=== PATIENT | male | born 2005 | race Caucasian/White ===

== ENCOUNTER 2025-06-01 12:35 | Emergency (ER) | payer OTHER, SELFPAY ==
--- NOTE | 2025-06-01 12:37 | CT_ITS ---
WS: [id number] CT HEAD NONCONTRAST HISTORY: fall, head injury TECHNIQUE: Contiguous axial imaging performed through the brain. Bone and soft tissue windows. Sagittal and coronal reformats reviewed. All CT scans at [facility] use at least one of these dose optimization techniques: automated exposure control; mA and/or kV adjustment per patient size (includes targeted exams where dose is matched to clinical indication); or iterative reconstruction. DLP: 1243.68 mGy.cm COMPARISON: None available. No acute intracranial hemorrhage, midline shift or mass effect. No atrophy or prior infarcts or herniation. Ventricles: Normal size with no hydrocephalus. Paranasal sinuses: As visualized are clear. Mastoid air cells: Well pneumatized. Calvarium and scalp: Skull is intact with no soft tissue edema or swelling. CT/CT head wo con* [id number] IMPRESSION: Negative head CT.
--- OUTSIDE RECORDS SUMMARY | 2025-06-01 12:45 | XMS_ITS | Continuity of Care Document ---
Author Organization [place] [facility] Liam, Dewayne, [facility] ([facility]) Address [address] [place] [address] Assessment No assessment recorded. Plan of Treatment Reminders Order Date Submit Date Provider Last Modified By Organization Details Last Modified Time Details Appointments ACUTE VISIT 025 11:50AM WALK-IN Not available Not available Not available Lab None recorde d. Referral None recorde d. Procedures None recorde d. Surgeries None recorde d. Imaging None recorde d. Medication Orders None recorde d. Patient TargetsNo targets recorded. Patient Instructions Encounter Date Encounter Id Patient Instructions Last Modified By Organization Details Last Modified Time 06/01/2025 [id number] ER- with nystagmus, smile being off mildly, dizziness and headache- I recommend ER for further eval [email or web address] Not available 06/01/2025 13:41:50 Reason for Referral None Reported. Problems Name Problem SNOMED Code Status Onset Date Resolution Date Notes Provider Name and Address Organization Details Recorded Time Standard circumcision Active 2006 Circ; 007 2:24PM by Kavya Lopez RN, Office Visit; Promote d; acuity set as *; [facility] Available [facility] 03:15:58 Problem Notes None recorded. Medical Equipment None Reported. Allergies No known drug allergies Medications Name Sig Start Date Stop Date Status Note LastModified by Organization Details LastModified Time Poly-V i-Ophelia QD 006 2024 completed Recorded 11/25/2006 2:24PM by Kavya Lopez RN, Office Visit; Refill Quantity: 100; Tablet Chewable; Not Available Not Available Not Available Vitals Date Recorded Body weight Body mass index (BMI) Body mass index (BMI) [Percentile] Per age and sex Body height Oxygen saturation Oxygen saturation in Arterial blood by Pulse oximetry Heart rate Respiratory rate Body temperature Systolic And Diastolic Provider Name and Address Organization Details Last Updated DateTime 120717. 61 g 31.5 kg/m2 96 % 183.52 cm 98 % 98 % 90 /min 16 /min 98.2 [degF] 140/90 mm[Hg] Shelley Dorman [facility] 13:04:02 Social History Question Answer Notes LastModified by Organizat ion Details LastModified Time Tobacco Smoking Status Former Smoker Shelley Dorman nazario [facility] 06/01/2025 13:01:35 What Was The Date Of Your Most Recent Tobacco Screening? 06/01/2025 [email or web address] Information not available 06/01/2025 Sex: Unknown Functional Status None recorded. Mental Status None recorded. Family History Nothing Reported Notes:Diabetes Medical History No medical history recorded. Immunizations Vaccine Type Date Status Note Provider Nam e and Address Organization Details Recorded Time varicella 6 completed Not Available [facility] 03/30/2023 02:43:29 Hib (HbOC) 6 completed Not Available [facility] 03/30/2023 02:43:30 MMR 6 completed Not Available [facility] 03/30/2023 02:43:31 DTaP, unspecified formulation 6 completed Not Available [facility] 03/30/2023 02:43:32 Hep B, adolescent or pediatric 5 completed Not Available [facility] 06/01/2025 12:57:06 DTaP, 5 pertussis antigens 5 completed Not Available [facility] 06/01/2025 12:57:06 Hib (PRP-T) 5 completed [facility] 06/01/2025 12:57:06 Pneumococcal conjugate PCV 13 5 completed Not Available [facility] 06/01/2025 12:57:06 IPV 5 completed Not Available [facility] 06/01/2025 12:57:06 Hep B, adolescent or pediatric 5 completed Not Available [facility] 06/01/2025 12:57:06 Hib (PRP-T) 5 completed Not Available [facility] 06/01/2025 12:57:06 DTaP, 5 pertussis antigens 5 completed Not Available [facility] 06/01/2025 12:57:06 Pneumococcal conjugate PCV 13 5 completed Not Available [facility] 06/01/2025 12:57:06 IPV 5 completed Not Available [facility] 06/01/2025 12:57:06 DTaP, 5 pertussis antigens 5 completed Not Available [facility] 06/01/2025 12:57:06 Hib (PRP-T) 5 completed Not Available [facility] 06/01/2025 12:57:06 Pneumococcal conjugate PCV 13 5 completed Not Available [facility] 06/01/2025 12:57:06 IPV 5 completed Not Available [facility] 06/01/2025 12:57:06 MMR 9 completed Not Available [facility] 06/01/2025 12:57:06 varicella 9 completed Not Available [facility] 06/01/2025 12:57:06 Hep B, adolescent or pediatric 9 completed Not Available [facility] 06/01/2025 12:57:06 Pneumococcal conjugate PCV 13 9 completed Not Available [facility] 06/01/2025 12:57:06 IPV 9 completed Not Available [facility] 06/01/2025 12:57:06 DTaP, 5 pertussis antigens 9 completed Not Available [facility] 06/01/2025 12:57:06 Tdap 8 completed Not Available [facility] 06/01/2025 12:57:06 meningococcal MCV4P 8 completed Not Available [facility] 06/01/2025 12:57:06 HPV, quadrivalent 8 completed Not Available [facility] 06/01/2025 12:57:06 meningococcal MCV4P 2 completed Not Available [facility] 06/01/2025 12:57:06 Past Encounters Encounter ID Performer Location Encounter Start Date Encounter Closed Date Diagnosis/Indication Diagnosis SNOMED-CT Code Diagnosis ICD10 Code Diagnosis IMO Codes Diagnosis Note [id number] TRACY ARENAS APRN [facility] ([facility]) [address] [place] [address] 06/01/2025 12:53:35 06/01/2025 13:42:03 Dizziness [id number] R42 21076 Health Concerns Section Related Observation LastModified by Organization Detai ls LastModified Time None Recorded Concern Status LastModified by Organization Details LastModified Time None Recorded Payers None recorded. Notes Date Note Type Note Provider Name and Address Organization Details Recorded Time 06/01/2025 text/html HeadacheReported by Patient walk in patientpatient is here today for walking yesterday and then he just fell to the ground and had no idea how he got there. Patient said after that he has felt light headed and dizzy TRACY ARENAS APRN [address] [place], [address], [facility] 06/01/2025 13:42:02
--- OUTSIDE RECORDS SUMMARY | 2025-06-01 12:45 | XMS_ITS | Data Portability ---
Author Organization [place] - Rodney Ordaz [facility] Dewayne Wheeler [facility] Address [address] [address] Assessment No assessment recorded. Plan of Treatment [...] By Organization Details Last Modified Time 06/01/2025 [id number] ER- with nystagmus, smile being off mildly, [...] d; acuity set as *; Not Available [facility] 03:[facility]58 Problem Notes None recorded. Medical Equipment [...] and Address Organization Details Last Updated DateTime 022227. 61 g 31.5 kg/m2 96 % 183.52 cm 98 % 98 % 90 /min 16 /min 98.2 [degF] 140/90 mm[Hg] Shelley Dorman [facility] 13:04:02 Social History Question Answer Notes LastModified by Organizat ion Details LastModified Time Tobacco Smoking Status Former Smoker Shelley Dorman nazario [facility] 06/01/2025 13:01:35 What Was The Date Of Your Most Recent Tobacco Screening? 06/01/2025 [email or web address] Information not available 06/01/2025 Sex: Unknown Functional Status None recorded. Mental Status None recorded. Family History Nothing Reported Notes:Diabetes Medical History No medical history recorded. Immunizations Vaccine Type Date Status Note Provider Nam e and Address Organization Details Recorded Time varicella 6 completed Not Available [facility] 03/30/2023 02:43:29 Hib (HbOC) 6 completed Not Available [facility] 03/30/2023 02:43:30 MMR 6 completed Not Available [facility] 03/30/2023 02:43:31 DTaP, unspecified formulation 6 completed Not Available [facility] 03/30/2023 02:43:32 Hep B, adolescent or pediatric 5 completed Not Available [facility] 06/01/2025 12:57:06 DTaP, 5 pertussis antigens 5 completed Not Available [facility] 06/01/2025 12:57:06 Hib (PRP-T) 5 completed Not Available [facility] 06/01/2025 12:57:06 Pneumococcal conjugate PCV 13 5 completed Not Available [facility] 06/01/2025 12:57:06 IPV 5 completed Not Available [facility] 06/01/2025 12:57:06 Hep B, adolescent or pediatric 5 completed Not Available [facility] 06/01/2025 12:57:06 Hib (PRP-T) 5 completed Not Available [facility] 06/01/2025 12:57:06 DTaP, 5 pertussis antigens 5 completed Not Available [facility] 06/01/2025 12:57:06 Pneumococcal conjugate PCV 13 5 completed Not Available [facility] 06/01/2025 12:57:06 IPV 5 completed Not Available [facility] 06/01/2025 12:57:06 DTaP, 5 pertussis antigens 5 completed Not Available [facility] 06/01/2025 12:57:06 Hib (PRP-T) 5 completed Not Available [facility] 06/01/2025 12:57:06 Pneumococcal conjugate PCV 13 5 completed Not Available [facility] 06/01/2025 12:57:06 IPV 5 completed Not Available [facility] 06/01/2025 12:57:06 MMR 9 completed Not Available [facility] 06/01/2025 12:57:06 varicella 9 completed Not Available [facility] 06/01/2025 12:57:06 Hep B, adolescent or pediatric 9 completed Not Available [facility] 06/01/2025 12:57:06 Pneumococcal conjugate PCV 13 9 completed Not Available [facility] 06/01/2025 12:57:06 IPV 9 completed Not Available [facility] 06/01/2025 12:57:06 DTaP, 5 pertussis antigens 9 completed Not Available [facility] 06/01/2025 12:57:06 Tdap 8 completed Not Available [facility] 06/01/2025 12:57:06 meningococcal MCV4P 8 completed Not Available [facility] 06/01/2025 12:57:06 HPV, quadrivalent 8 completed Not Available [facility] 06/01/2025 12:57:06 meningococcal MCV4P 2 completed Not Available [facility] 06/01/2025 12:57:06 Past Encounters Encounter ID Performer Location Encounter Start Date Encounter Closed Date Diagnosis/Indication Diagnosis SNOMED-CT Code Diagnosis ICD10 Code Diagnosis IMO Codes Diagnosis Note [id number] TRACY ARENAS APRN [facility] [address] [place] [address] 06/01/2025 12:53:35 06/01/2025 13:44:58 Dizziness [id number] R42 30762 Health Concerns Section Related Observation LastModified by Organization Detai ls LastModified Time None Recorded Concern Status LastModified by Organization Details LastModified Time None Recorded Advance Directives Directive None Recorded Payers Insurance Date Sequence Insurance Name Policy Number Policy Frederick Covered Member ID Frederick Member ID Guarantor Name 06/01/2025 1 [facility] (MEDICAID HMO) [id number] Alexandre Damon [id number] Obdulia Damon Notes Date Note Type Note Provider Name and Address Organization Details Recorded Time 06/01/2025 text/html HeadacheReported by Patient walk in patientpatient is here today for walking yesterday and then he just fell to the ground and had no idea how he got there. Patient said after that he has felt light headed and dizzy TRACY ARENAS APRN [address] [place], [address], [facility] 06/01/2025 13:42:02
[2025-06-01 13:01] VITALS: BP 134/83; PULSE 73; RESP 18; TEMP 36.7; O2SAT 99; BMI 30.5
--- NOTE | 2025-06-01 13:41 | ED_ITS ---
HPI - Head Injury General: Chief complaint: Head Injury Stated complaint: hit head, dizzy, confusion, n/v Time Seen by Provider: 06/01/25 13:22 Source: patient Mode of arrival: ambulatory Limitations: no limitations History of Present Illness: This patient is a 19-year-old male present to the emergency department after a head injury occurred yesterday while at work. He states this is not a Worker's Compensation issue. Notes that he fell off a tractor and struck the right side of his head, but has had been having pain in the left side. Also notes that he has had a couple of episodes of vomiting, nausea, and some dizziness and lightheadedness. He has been ambulatory, no discharge from his nose or ears, no focal neurological deficit, and no other concerns at this time and he is concerned of a concussion. At this time vitals are stable. Reporting minor headache. He did not lose consciousness after the fall. MD Complaint: head injury Onset (ago): day(s) Mechanism of Injury: fall Place: work Loss of Consciousness: no Associated symptoms: Reports nausea and vomiting; Deny neck pain Related Data Home Medications ?Medication ?Instructions ?Recorded ?Confirmed No Known Home Medications 10/30/1910/04 Allergies Allergy/AdvReac Type Severity Reaction Status Date / Time No Known Allergies Allergy Verified 10/30/19 14:13 Review of Systems General: Reports: 10 or more systems reviewed and unremarkable except in HPI and below Const: Reports: other (Fall/head injury); Denies: fever(s), chills or fatigue Eyes: Denies: change in vision ENMT: Denies: throat pain, ear or mastoid pain, ear discharge or nasal discharge Card: Reports: lightheadedness; Denies: chest pain, palpitations or swelling of feet/ankles Resp: Denies: dyspnea, productive cough or wheezing GI: Reports: nausea and vomiting; Denies: abdominal pain, dysphagia, diarrhea or constipation : Denies: flank pain, difficulty urinating, dysuria or urinary frequency Musc: Denies: neck pain, back pain or joint pain Skin/Breast: Denies: rash Neuro: Reports: dizziness; Denies: headache(s), numbness in extremities, weakness in extremities, sensory changes, lack of coordination, Slurred speech present, difficulty communicating thoughts, seizure-like activity or involuntary movements PFSH ED PFSH: Social History Smoking and tobacco/nicotine status: never used tobacco/nicotine Second hand smoke exposure: No Alcohol intake: never Substance/Drug Use: never Adopted: No Current gender identity: Male Physical Exam Const: COMMON NORMALS: no acute distress, patient oriented x3 and no limitations GENERAL APPEARANCE: cooperative, comfortable and well developed ORIENTATION/CONSCIOUSNESS: Yes awake, Yes oriented to person, Yes oriented to place and Yes oriented to time HENMT: COMMON NORMALS: normocephalic, atraumatic and hearing grossly normal bilaterally HEAD & SCALP: normocephalic and atraumatic Eye: COMMON NORMALS: Equal, round and reactive pupils present, EOMs intact bilaterally and conjunctivae normal CONJUNCTIVA: Yes conjunctivae normal PUPIL: Yes Equal, round and reactive pupils present Neck/C-Spine: COMMON NORMALS: full ROM, supple and no JVD Resp: COMMON NORMALS: normal respiratory effort, No retractions, No use of accessory muscles and clear to auscultation bilaterally AUSCULTATION: clear to auscultation bilaterally Cardio: COMMON NORMALS: no JVD, regular rate, regular rhythm, No clicks present (Cardio), No murmurs present (Cardio) and No rub (Cardio) RATE: regular rate RHYTHM: regular rhythm Back/Pelvis: COMMON NORMALS: thoracic and lumbar spine normal to inspection, no thoracic nor lumbar tenderness and thoraco-lumbar ROM normal Extremity: COMMON NORMALS: normal to inspection, full ROM and capillary refill normal Neuro: COMMON NORMALS: patient oriented x3, CN's II-XII intact bilaterally, moves all extremities, no focal motor deficits and no sensory deficits noted SENSORIUM/ORIENTATION: Yes oriented to person, Yes oriented to place and Yes oriented to time COORDINATION/BALANCE: [id number] test normal and [id number]-[id number] test normal GAIT: Yes Normal gait present MOTOR EXAM: 5/5 motor strength present throughout, Pronator motor function not present, no tremor noted, no asterixis and Motor fasciculations not present COORDINATION: [id number] test normal and [id number] test normal Psych: COMMON NORMALS: mental status grossly normal and Normal thought process present THOUGHT PROCESS: Normal thought process present Skin: COMMON NORMALS: no rashes or lesions noted GENERAL SKIN EXAM: no rashes or lesions noted Course Vital Signs: Vital signs: Vital Signs Temperature 98.1 F 06/01/25 13:01 Pulse Rate 73 06/01/25 13:01 Respiratory Rate 18 06/01/25 13:01 Blood Pressure 134/83 06/01/25 13:01 Pulse Oximetry 99 06/01/25 13:01 Oxygen Delivery Me thod Room Air 06/01/25 13:01 MDM - Head Injury Medcial Decision Making Patient presenting after head injury occurred at work yesterday, however states this is not a Worker's Compensation issue. Did not lose conscious at this time, though has had some symptoms consistent with a postconcussive syndrome however with nausea, vomiting, dizziness and lightheadedness. On exam there was no focal neurological deficit, CT of the head does not reveal any acute abnormality. Do suspect this is postconcussive syndrome and he is instructed to avoid further head injury and conservative measures discussed otherwise. Strict return precautions were also given and he will be discharged home at this time. Lab Data Radiology Impressions Head CT 06/01/25 12:37 IMPRESSION: Negative head CT. 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 Discharge Instructions: - Education and Reassurance: Provide clear information about PCS, expected recovery, and symptom management. Most patients recover, but symptoms may persist for weeks to months. Early, tailored education has demonstrated benefit in reducing persistent symptoms and anxiety. - Activity and Rest: - Strict rest beyond 24?48 hours is not recommended. After an initial brief period of relative rest, encourage gradual resumption of cognitive and physical activities as tolerated, avoiding activities that significantly worsen symptoms. - Prolonged inactivity may delay recovery; instead, a stepwise, individualized return to normal activities is advised. - Physical Activity: - Initiate a graded, sub-symptom threshold aerobic exercise program (e.g., walking, stationary cycling) once tolerated, as this approach is associated with improved outcomes in PCS. - Avoid contact sports or activities with risk of head injury until fully cleared. - Symptom Management: - Headache: Use acetaminophen as needed; avoid NSAIDs if within 24?48 hours of injury unless otherwise indicated. - Sleep Disturbance: Emphasize sleep hygiene (regular schedule, avoid screens b efore bed). Address persistent insomnia with nonpharmacologic strategies first. - Cognitive Symptoms: Allow for breaks during mentally demanding tasks. Gradually increase cognitive load as tolerated. - Mood/Emotional Symptoms: Monitor for irritability, anxiety, or depression. Early psychological support or cognitive behavioral therapy may be beneficial f or persistent symptoms. - Vestibular/Balance Symptoms: If dizziness or balance issues persist beyond 10 days, consider referral for vestibular rehabilitation. - Visual Symptoms: Persistent visual complaints may benefit from oculomotor rehabilitation. - Return to School/Work: - Resume academic or occupational activities as tolerated, with accommodations (e.g., reduced hours, frequent breaks) as needed. Gradually increase participation based on symptom response. - Follow-Up and Referral: - Schedule follow-up within 1?2 weeks to monitor recovery and adjust management. - Refer to appropriate specialists (neurology, physical therapy, vestibular therapy, psychology) if symptoms persist beyond 4 weeks or if there is significant functional impairment. - Red Flag Symptoms: Instruct to seek immediate medical attention for: - Severe or worsening headache - Repeated vomiting - New focal neurological deficits (e.g., weakness, numbness) - Seizure - Drowsiness or inability to awaken - Slurred speech or confusion Summary: Active, individualized management with early education, gradual return to activity, and symptom-specific interventions is recommended for PCS. Prolonged rest is not beneficial. Persistent or severe symptoms warrant specialist ref erral and multidisciplinary care. Print Language: Taiwanese Coding Level of Care Code ED Secret Service Agent for Patricia Lozano
== END 2025-06-01 13:35 | disposition home or self-care (01) ==
PROVIDERS: Emergency Provider Physician Assistant
DX: R11.2 Nausea with vomiting, unspecified (principal); R42 Dizziness and giddiness; F07.81 Postconcussional syndrome
CPT/HCPCS: 70450; 99284